=== PATIENT | male | born 1965 | race Caucasian/White ===

== ENCOUNTER → 2016-08-02 | Outpatient (CLI) | payer MEDICAID, OTHER | LOC: YCFC.O 12:33 | PROVIDERS: ATTEND Nurse Practitioner Family | DX: Z00.00 Encounter for general adult medical examination without abnormal findings (principal); R94.5 Abnormal results of liver function studies; I10 Essential (primary) hypertension; Z68.29 Body mass index [BMI] 29.0-29.9, adult ==

== ENCOUNTER → 2017-01-27 | Outpatient (CLI) | payer OTHER ==
--- NOTE | 2017-01-27 18:09 | RAD ---
EXAM DESCRIPTION: Chest,2 Views CLINICAL HISTORY: 51 years Male Nicotine dependence, unspecified, uncomplicated COMPARISON: 12/26/2010 FINDINGS: The cardiomediastinal silhouette appears unremarkable. No consolidating infiltrates or pleural effusions. No pneumothorax. IMPRESSION: No acute abnormality is identified. Electronically signed by: Devora Castillo 01/27/2017 6:08 PM CDT
== END | disposition home or self-care (01) ==
LOC: YCFC.O 12:01
PROVIDERS: ATTEND Nurse Practitioner Family
DX: R53.81 Other malaise (principal); R05 Cough; E86.0 Dehydration; F17.200 Nicotine dependence, unspecified, uncomplicated

== ENCOUNTER 2017-05-18 08:50 | Emergency (ER) | payer OTHER ==
--- NOTE | 2017-05-18 09:15 | ED.PDOC ---
History of Present Illness - General Chief Complaint: Respiratory Problem Stated Complaint: head and nasal congestion,low grade fever Time Seen by Provider: 05/18/17 08:54 Source: patient, RN notes reviewed Exam Limitations: no limitations - History of Present Illness Comments: Patient reports that he has not been feeling well for the past week. He went to the clinic and was diagnosed with a sinus infection and started on Bactrim. He is not feeling better so came to ER. + sinus pressure, congestion and cough. Feels like he has congestion in his lungs. He reports a subjective fever early on but none now. Timing/Duration: constant, week Cough Quality/Degree: moderate Possible Cause: illness exposure Improving Factors: nothing Worsening Factors: nothing Associated Symptoms: cough, facial pain, fever/chills, nasal congestion Allergies/Adverse Reactions: Allergies NO KNOWN ALLERGY Allergy (Verified 02/15/16 15:43) Home Medications: Ambulatory Orders Cefdinir 300 mg PO BID #20 cap 05/18/17 Review of Systems - Review of Systems Constitutional: States: chills, fever, malaise, weakness EENTM: States: see HPI, nose congestion Respiratory: States: cough. Denies: short of breath Cardiology: States: no symptoms reported Gastrointestinal/Abdominal: States: no symptoms reported Musculoskeletal: States: no symptoms reported Skin: States: no symptoms reported Neurological: States: no symptoms reported All other Systems: No Change from Baseline Past Medical History (General) - Patient Medical History Hx Seizures: No Hx Stroke: No Hx Dementia: No Hx Asthma: No Hx of COPD: No Hx Cardiac Disorders: No Hx Congestive Heart Failure: No Hx Pacemaker: No Hx Hypertension: No Hx Thyroid Disease: No Hx Diabetes: No Hx Gastroesophageal Reflux: No Hx Renal Disease: No Hx Cancer: No Hx of HIV: No Hx Hepatitis C: No Hx MRSA: No - Vaccination History Hx Tetanus, Diphtheria Vaccination: No Hx Influenza Vaccination: No Hx Pneumococcal Vaccination: No - Social History Hx Tobacco Use: Yes Family Medical History - Family History Mother Family History: Unknown Living Status: Unknown Physical Exam - Physical Exam General Appearance: Alert, Comfortable, No apparent distress, Well Developed, Well Groomed, Well Hydrated, Well Nourished Eye Exam: bilateral normal ENT Exam: hearing grossly normal, TMs normal, nasal congestion, pharyngeal erythema, other - No maxillary or sinus tenderness Neck: non-tender, full range of motion, supple, normal inspection Respiratory: no respiratory distress, no accessory muscle use, rhonchi - Throughout L>R Cardiovascular/Chest: regular rate, rhythm, no gallop, no murmur Extremity: normal range of motion, non-tender, normal inspection Neurologic: alert, normal mood/affect, oriented x 3 Skin Exam: normal color, warm/dry Comments: Vital Signs 05/18/17 05/18/17 09:05 09:11 Temperature 98 F Pulse Rate [ 66 Left Brachial] Respiratory 20 20 Rate Blood Pressure 115/76 [Left Arm] O2 Sat by Pulse 99 Oximetry Progress - Progress Progress: 05/18/17 09:38 Will give Solumedrol 125mg IM and change antibiotic to Cefdinir - EKG/XRAY/CT XRAY: chest - No acute process per Radiologist Departure - Departure Clinical Impression: Acute bronchitis Qualifiers: Bronchitis organism: unspecified organism Qualified Code(s): J20.9 - Acute bronchitis, unspecified Sinusitis Qualifiers: Sinusitis location: frontal Chronicity: acute Recurrence: non-recurrent Qualified Code(s): J01.10 - Acute frontal sinusitis, unspecified Time of Disposition: 09:39 Disposition: Discharge to Home or Self Care Condition: Good Departure Forms: ED Discharge - Pt. Copy, Patient Portal Self Enrollment Instructions: DI for Sinusitis, DI for Acute Bronchitis Diet: resume usual diet Activity: increase activity as tolerated Referrals: Dorothy Sanz NP [Primary Care Provider] - 1-2 Weeks Prescriptions: Cefdinir 300 mg PO BID #20 cap Home Medications: Ambulatory Orders Cefdinir 300 mg PO BID #20 cap 05/18/17
--- NOTE | 2017-05-18 09:34 | RAD ---
EXAM DESCRIPTION: Chest,2 Views CLINICAL HISTORY: Rhonchi/cough/fever COMPARISON: January 27, 2017 FINDINGS: Frontal and lateral views of the chest. Cardiac silhouette and pulmonary vascularity are within normal limits. Lungs are clear without focal consolidative infiltrates. No pleural effusion. No pneumothorax. No acute osseous abnormality. IMPRESSION: No radiographic evidence of acute cardiopulmonary disease. Electronically signed by: Huang Almonte MD 05/18/2017 9:33 AM CDT
[2017-05-18] MEDS ORDERED: methylPREDNISolone SODIUM SUC 125 MG/2 ML VIAL IM ONE (09:36)
[2017-05-18 09:49] VITALS: BP 115/76; TEMP 98; O2SAT 99
== END 2017-05-18 09:53 | disposition home or self-care (01) ==
LOC: ER 08:50
DX: J20.9 Acute bronchitis, unspecified (principal); J01.10 Acute frontal sinusitis, unspecified
CPT/HCPCS: 71020; J2930

== ENCOUNTER 2017-05-23 12:31 | Emergency (ER) | payer OTHER ==
--- NOTE | 2017-05-23 12:42 | ED.PDOC ---
History of Present Illness - General Chief Complaint: Respiratory Problem Stated Complaint: PERSISTENT COUGH Time Seen by Provider: 05/23/17 12:36 Source: patient Exam Limitations: no limitations Additional Information: PT HAS HAD PERSISTENT COUGH FOR 11 DAYS. HAS BEEN SEEN ONCE IN PCP'S OFFICE RX SULFA WITH NO RELIEF. SEEN ONCE IN ER WITH STEROID IM AND CEFNIDIR. STATES HE FEELS SOME BETTER BUT STILL HAVING SIGNIFICANT SXS. - History of Present Illness Severity: moderate Improving Factors: nothing Worsening Factors: nothing Associated Symptoms: cough Allergies/Adverse Reactions: Allergies NO KNOWN ALLERGY Allergy (Verified 05/23/17 12:48) Home Medications: Ambulatory Orders Cefdinir 300 mg PO BID #20 cap 05/18/17 Azithromycin [Zithromax Z-Jason] 1 ea PO DAILY #1 pack 05/23/17 Review of Systems - Review of Systems Constitutional: States: other - NO NIGHT SWEATS, SIGNIFICANT GENERALIZED FATIGUE . Denies: chills, fever EENTM: Denies: ear pain, nose congestion, throat pain Respiratory: States: cough, other - PROD OF GREEN SPUTUM. Denies: short of breath, wheezing Cardiology: Denies: chest pain, palpitations, syncope Gastrointestinal/Abdominal: Denies: abdominal pain, nausea, vomiting Genitourinary: States: no symptoms reported Musculoskeletal: States: no symptoms reported Skin: States: no symptoms reported Neurological: States: no symptoms reported Endocrine: States: no symptoms reported Hematologic/Lymphatic: States: no symptoms reported Past Medical History (General) - Patient Medical History Hx Seizures: No Hx Stroke: No Hx Dementia: No Hx Asthma: No Hx of COPD: No Hx Cardiac Disorders: No Hx Congestive Heart Failure: No Hx Pacemaker: No Hx Hypertension: No Hx Thyroid Disease: No Hx Diabetes: No Hx Gastroesophageal Reflux: No Hx Renal Disease: No Hx Cancer: No Hx of HIV: No Hx Hepatitis C: No Hx MRSA: No - Vaccination History Hx Tetanus, Diphtheria Vaccination: No Hx Influenza Vaccination: No Hx Pneumococcal Vaccination: No - Social History Hx Tobacco Use: Yes Family Medical History - Family History Mother Family History: Unknown Living Status: Unknown Physical Exam - Physical Exam General Appearance: Alert, No apparent distress Eye Exam: bilateral normal Ears, Nose, Throat: hearing grossly normal, normal ENT inspection, normal pharynx, other - NO SINUS TTP. TM'S NL Neck: non-tender, full range of motion, supple, normal inspection Respiratory: lungs clear, normal breath sounds, no respiratory distress Cardiovascular/Chest: regular rate, rhythm, no murmur Gastrointestinal/Abdominal: normal bowel sounds, non tender, soft, no organomegaly, other - UMBILICAL HERNIA. NOT REDUCABLE, NON STRANGULATED. Back Exam: normal inspection, no CVA tenderness, no vertebral tenderness Extremity: normal range of motion, normal inspection, no pedal edema Neurologic: alert, normal mood/affect Skin Exam: normal color, warm/dry Lymphatic: no adenopathy Progress - EKG/XRAY/CT XRAY: chest - KATHRYN Departure - Departure Clinical Impression: Bronchitis Time of Disposition: 13:55 Disposition: Discharge to Home or Self Care Condition: Good Departure Forms: ED Discharge - Pt. Copy, Patient Portal Self Enrollment Instructions: Acute Bronchitis Referrals: Dorothy Sanz NP [Primary Care Provider] - 1-2 Weeks Prescriptions: Azithromycin [Zithromax Z-Jason] 1 ea PO DAILY #1 pack Home Medications: Ambulatory Orders Cefdinir 300 mg PO BID #20 cap 05/18/17 Azithromycin [Zithromax Z-Jason] 1 ea PO DAILY #1 pack 05/23/17
[2017-05-23] MEDS ORDERED: SODIUM CHLORIDE 0.9% 1000ML 1,000 ML IVS ONE (12:46)
[2017-05-23 12:48] VITALS: BP 134/86
--- NOTE | 2017-05-23 13:10 | RAD ---
EXAM DESCRIPTION: Chest,2 Views CLINICAL HISTORY: PERSISTENT COUGH COMPARISON: May 18, 2017 FINDINGS: Two-view chest x-ray shows cardiomediastinal silhouette and pulmonary vasculature to be within normal limits. The lungs are normally aerated and clear. Costophrenic angles are sharp. Mild disc degenerative changes of the spine are seen. IMPRESSION: No radiographic evidence of acute cardiopulmonary disease. Electronically signed by: Ha Coyne MD 05/23/2017 1:08 PM CDT
[2017-05-23] MEDS ORDERED: methylPREDNISolone SODIUM SUC 125 MG/2 ML VIAL IV ONE (13:59)
[2017-05-23 14:53] VITALS: TEMP 98.2; O2SAT 97
== END 2017-05-23 14:40 | disposition home or self-care (01) ==
LOC: ER 12:31
DX: J40 Bronchitis, not specified as acute or chronic (principal); Z87.891 Personal history of nicotine dependence
CPT/HCPCS: 71020; 80053; 85025; J2930; J7030

== ENCOUNTER 2017-05-30 08:39 | Emergency (ER) | payer OTHER ==
--- NOTE | 2017-05-30 08:47 | ED.PDOC ---
History of Present Illness - General Chief Complaint: ENT Problem Stated Complaint: nasal congestion Time Seen by Provider: 05/30/17 08:45 Source: patient Exam Limitations: no limitations - History of Present Illness Initial Comments: Re Neal 52 y/o male stated that he had nasal congestion for the last 11/2 weeks no fever ,no chills,no ill contact.Taken z- jason and prednisone in the past. also with non productive cough Timing/Duration: other - see hpi EENT Location: nose Prearrival Treatment: no prearrival treatment Presenting Symptoms: congestion/cough Worsening Factors: nothing Associated Symptoms: nasal congestion/drainage Allergies/Adverse Reactions: Allergies NO KNOWN ALLERGY Allergy (Verified 05/23/17 12:48) Home Medications: Ambulatory Orders Azithromycin [Zithromax Z-Jason] 1 ea PO DAILY #1 pack 05/30/17 Benzonatate Perles [Tessalon Perles] 200 mg PO BID PRN #30 cap 05/30/17 predniSONE 20 mg PO ONCE #7 tab 05/30/17 Review of Systems - Review of Systems Constitutional: States: no symptoms reported EENTM: States: see HPI Respiratory: States: see HPI Cardiology: States: no symptoms reported Gastrointestinal/Abdominal: States: no symptoms reported Genitourinary: States: no symptoms reported Past Medical History (General) - Patient Medical History Hx Seizures: No Hx Stroke: No Hx Dementia: No Hx Asthma: No Hx of COPD: No Hx Cardiac Disorders: No Hx Congestive Heart Failure: No Hx Pacemaker: No Hx Hypertension: No Hx Thyroid Disease: No Hx Diabetes: No Hx Gastroesophageal Reflux: No Hx Renal Disease: No Hx Cancer: No Hx of HIV: No Hx Hepatitis C: No Hx MRSA: No Surgical History: other - hernia repair in childhood - Vaccination History Hx Tetanus, Diphtheria Vaccination: No Hx Influenza Vaccination: No Hx Pneumococcal Vaccination: No - Social History Hx Tobacco Use: Yes Family Medical History - Family History Mother Family History: Unknown Living Status: Unknown Physical Exam - Physical Exam General Appearance: Alert, Comfortable, No apparent distress Eye Exam: bilateral normal Ear Exam: bilateral ear: auricle normal, canal normal, TM normal Nasal Exam: normal inspection, other - nasal congestion bilaterally Throat Exam: normal mouth inspection, pharynx normal Neck: non-tender, supple Cardiovascular/Respiratory: normal peripheral pulses, normal breath sounds, no respiratory distress Abdominal Exam: non-tender, no organomegaly Neurologic: alert, oriented x 3 Skin Exam: normal color, warm/dry Departure - Departure Clinical Impression: Upper respiratory infection Qualifiers: URI type: unspecified URI Qualified Code(s): J06.9 - Acute upper respiratory infection, unspecified Time of Disposition: 08:59 Disposition: Discharge to Home or Self Care Condition: Good Departure Forms: ED Discharge - Pt. Copy, Patient Portal Self Enrollment Instructions: Smoking and Smoking Cessation in Relation to Mortality in Women, All Forms of Smoking Are Bad for You, Reasons to Quit Smoking, How to Quit Smoking Referrals: Dorothy Sanz NP [Primary Care Provider] - 1-2 Weeks Prescriptions: Azithromycin [Zithromax Z-Jason] 1 ea PO DAILY #1 pack Benzonatate Perles [Tessalon Perles] 200 mg PO BID PRN #30 cap PRN Reason: Cough predniSONE 20 mg PO ONCE #7 tab Home Medications: Ambulatory Orders Azithromycin [Zithromax Z-Jason] 1 ea PO DAILY #1 pack 05/30/17 Benzonatate Perles [Tessalon Perles] 200 mg PO BID PRN #30 cap 05/30/17 predniSONE 20 mg PO ONCE #7 tab 05/30/17 Additional Instructions: May use Afrin Nose Webb (OTC) 2 sprays each nose am /pm 3days on 3 days off as needed for nasal congestion follow up with primary md 06/01/2017 for ENT consult.
[2017-05-30 08:56] VITALS: TEMP 98.5
[2017-05-30 09:15] VITALS: BP 120/88; O2SAT 97
== END 2017-05-30 09:14 | disposition home or self-care (01) ==
LOC: ER 08:39
DX: J06.9 Acute upper respiratory infection, unspecified (principal)

== ENCOUNTER 2017-06-07 09:12 | Emergency (ER) | payer OTHER ==
[2017-06-07 09:35] VITALS: TEMP 98.7
--- NOTE | 2017-06-07 10:01 | ED.PDOC ---
History of Present Illness - General Chief Complaint: General Stated Complaint: malaise Time Seen by Provider: 06/07/17 09:50 Source: patient Exam Limitations: no limitations - History of Present Illness Initial Comments: PT REPORTS 1 MONTH HISTORY OF PERSISTENT URI SYMPTOMS TO INCLUDE NON PRODUCTIVE COUGH, HEADACHES, FACIAL PAIN, CONGESTION, INTERMITTENT SORE THROAT, DECREASED APPETITE AND GENERALIZED MALAISE. PT HAS BEEN ON 4 ROUNDS OF ABX AND STATES THAT SYMPTOMS USUALLY IMPROVE BUT RETURN AFTER ANTIBIOTICS ARE COMPLETED. PT DENIES FEVER, CHILLS, NIGHT SWEATS OR WEIGHT LOSS. Severity: moderate Improving Factors: nothing Worsening Factors: nothing Associated Symptoms: cough, loss of appetite, malaise, weakness Allergies/Adverse Reactions: Allergies NO KNOWN ALLERGY Allergy (Verified 05/23/17 12:48) Home Medications: Ambulatory Orders Azithromycin [Zithromax Z-Jason] 1 ea PO DAILY #1 pack 05/30/17 Benzonatate Perles [Tessalon Perles] 200 mg PO BID PRN #30 cap 05/30/17 predniSONE 20 mg PO ONCE #7 tab 05/30/17 levoFLOXacin [Levaquin] 500 mg PO DAILY 10 Days #10 tab 06/07/17 Review of Systems - Review of Systems Constitutional: States: malaise, weakness. Denies: chills, fever EENTM: States: nose congestion, throat pain Respiratory: States: cough. Denies: short of breath, wheezing Cardiology: Denies: chest pain, edema, palpitations, syncope Gastrointestinal/Abdominal: Denies: abdominal pain, nausea, vomiting Genitourinary: States: frequency. Denies: dysuria, hematuria Musculoskeletal: Denies: joint pain, muscle pain Skin: Denies: lumps Neurological: States: headache. Denies: weakness Endocrine: States: increased urine. Denies: excessive sweating, intolerance to cold, increased hunger, unexplained weight loss Hematologic/Lymphatic: States: swollen glands. Denies: anemia, easy bleeding, easy bruising Past Medical History (General) - Patient Medical History Hx Seizures: No Hx Stroke: No Hx Dementia: No Hx Asthma: No Hx of COPD: No Hx Cardiac Disorders: No Hx Congestive Heart Failure: No Hx Pacemaker: No Hx Hypertension: No Hx Thyroid Disease: No Hx Diabetes: No Hx Gastroesophageal Reflux: No Hx Renal Disease: No Hx Cancer: No Hx of HIV: No Hx Hepatitis C: No Hx MRSA: No Surgical History: other - Vaccination History Hx Tetanus, Diphtheria Vaccination: No Hx Influenza Vaccination: No Hx Pneumococcal Vaccination: No - Social History Hx Tobacco Use: Yes Family Medical History - Family History Mother Family History: Unknown Living Status: Unknown Physical Exam - Physical Exam General Appearance: Alert, Comfortable, No apparent distress, Well Developed, Well Groomed, Well Hydrated Eye Exam: bilateral normal Ears, Nose, Throat: hearing grossly normal, nasal congestion, pharyngeal erythema Neck: non-tender, full range of motion, supple, normal inspection, lymphadenopathy (R), lymphadenopathy (L) Respiratory: chest non-tender, lungs clear, normal breath sounds, no respiratory distress, no accessory muscle use Cardiovascular/Chest: normal peripheral pulses, regular rate, rhythm, no edema Gastrointestinal/Abdominal: normal bowel sounds, non tender, soft, no organomegaly Back Exam: normal inspection, no CVA tenderness Extremity: normal range of motion, non-tender, normal inspection Neurologic: alert, normal mood/affect, oriented x 3 Skin Exam: normal color, warm/dry Progress - Progress Progress: 06/07/17 11:58 PT RESTING COMFORTABLY, LABS AND CT FINDINGS DISCUSSED. STRONGLY RECOMMENDED TO PATIENT TO FOLLOW UP WITH PCP REGARDING FURTHER WORKUP OF SYMPTOMS. - Results/Orders Results/Orders: Laboratory Tests 06/07/17 06/07/17 06/07/17 10:15 10:15 10:15 WBC 8.9 RBC 4.95 Hgb 15.1 Hct 43.9 MCV 88.6 MCH 30.5 MCHC 34.5 RDW 13.5 Plt Count 127 L MPV 7.0 L Absolute Neuts (auto) 6.60 Absolute Lymphs (auto) 1.40 Absolute Monos (auto) 0.60 Absolute Eos (auto) 0.30 Absolute Basos (auto) 0.10 Neutrophils % 73.7 Lymphocytes % 15.8 L Monocytes % 6.5 Eosinophils % 3.4 Basophils % 0.6 D-Dimer, Quantitative < 200 Sodium 138 Potassium 4.0 Chloride 107 Carbon Dioxide 28 Anion Gap 7.0 L BUN 15 Creatinine 1.04 BUN/Creatinine Ratio 14.4 Random Glucose 95 Serum Osmolality 276.3 Calcium 8.8 Total Bilirubin 0.7 AST 19 ALT 26 Alkaline Phosphatase 59 Troponin I B-Natriuretic Peptide 13.8 Serum Total Protein 6.4 Albumin 3.7 Globulin 2.7 Albumin/Globulin Ratio 1.4 Urine Color Urine Appearance Urine pH Ur Specific [place] Urine Protein Urine Glucose (UA) Urine Ketones Urine Blood Urine Nitrite Urine Bilirubin Urine Urobilinogen Ur Leukocyte Esterase Urine RBC Urine WBC Ur Epithelial Cells Amorphous Sediment Urine Bacteria Monoscreen 06/07/17 06/07/17 06/07/17 10:15 10:15 10:24 WBC RBC Hgb Hct MCV MCH MCHC RDW Plt Count MPV Absolute Neuts (auto) Absolute Lymphs (auto) Absolute Monos (auto) Absolute Eos (auto) Absolute Basos (auto) Neutrophils % Lymphocytes % Monocytes % Eosinophils % Basophils % D-Dimer, Quantitative Sodium Potassium Chloride Carbon Dioxide Anion Gap BUN Creatinine BUN/Creatinine Ratio Random Glucose Serum Osmolality Calcium Total Bilirubin AST ALT Alkaline Phosphatase Troponin I < 0.02 B-Natriuretic Peptide Serum Total Protein Albumin Globulin Albumin/Globulin Ratio Urine Color Yellow Urine Appearance Sl cloudy Urine pH 7.0 Ur Specific [place] 1.020 Urine Protein Negative Urine Glucose (UA) Negative Urine Ketones Negative Urine Blood Negative Urine Nitrite Negative Urine Bilirubin Negative Urine Urobilinogen 0.2 Ur Leukocyte Esterase Negative Urine RBC 0 Urine WBC 0 Ur Epithelial Cells 0 Amorphous Sediment 1+ Urine Bacteria 0 Monoscreen Negative - EKG/XRAY/CT EKG: Jacinto - @54BPM, NL INTERVALS, NL AXIS, Sinus, no ST T wave changes - NO OLD EKG FOR COMPARISON XRAY: chest - NO ACUTE DISEASE CT: HEAD/SINUSES: SINUSITIS Departure - Departure Clinical Impression: Sinusitis, Malaise and fatigue, Headache, Acute bronchitis Time of Disposition: 12:00 Disposition: Discharge to Home or Self Care Condition: Fair Departure Forms: ED Discharge - Pt. Copy, Patient Portal Self Enrollment, Work Release Form Instructions: DI for Sinusitis, DI for Acute Bronchitis Referrals: Dorothy Sanz NP [Primary Care Provider] - 1-2 Weeks Prescriptions: levoFLOXacin [Levaquin] 500 mg PO DAILY 10 Days #10 tab Home Medications: Ambulatory Orders Azithromycin [Zithromax Z-Jason] 1 ea PO DAILY #1 pack 05/30/17 Benzonatate Perles [Tessalon Perles] 200 mg PO BID PRN #30 cap 05/30/17 predniSONE 20 mg PO ONCE #7 tab 05/30/17 levoFLOXacin [Levaquin] 500 mg PO DAILY 10 Days #10 tab 06/07/17
--- NOTE | 2017-06-07 10:38 | RAD ---
EXAM DESCRIPTION: Chest,2 Views CLINICAL HISTORY: 52 years Male, persistent cough, malaise COMPARISON: 23 May 2017 TECHNIQUE: PA/lateral FINDINGS: There is no cardiac or pulmonary abnormality. The lungs are clear. There is no effusion. IMPRESSION: 1. Normal two-view chest. Electronically signed by: Huang Daley MD 06/07/2017 10:37 AM [facility]
--- NOTE | 2017-06-07 11:31 | CT ---
Study: CT of the head. CT of the sinuses. Indication: HEADACHE Technique: Axial CT images of the head were acquired without intravenous contrast. This exam was performed according to our departmental dose-optimization program, which includes automated exposure control, adjustment of the mA and/or kV according to patient size and/or use of iterative reconstruction technique. Comparison: None. Findings: No CT evidence of acute ischemia, acute hemorrhage, mass, mass effect, midline shift, or extra-axial fluid collection. Ventricles are normal in configuration without hydrocephalus. Brain parenchyma demonstrates a normal appearance for patient age. Scattered mild circumferential mucosal thickening in the maxillary sinuses, ethmoid air cells, sphenoid sinuses. No air-fluid levels identified. Obstruction of the right ostiomeatal unit posteriorly due to mucosal thickening. Left ostiomeatal unit patent. 3 mm leftward deviation osseous nasal septum. No significant hypertrophy of the turbinates. Tiny bilateral middle turbinate lizabeth bullosa. Mastoid air cells are adequately aerated. Osseous structures and soft tissues are unremarkable. Poor dentition noted with multiple periapical maxillary lucencies. Impression: 1. No CT evidence of acute intracranial abnormality. 2. Mild scattered paranasal sinus mucosal disease as detailed above. 3. Poor dentition. Dental consultation advised. Electronically signed by: Matt Agarwal MD 06/07/2017 11:30 AM [employer] [facility]
[2017-06-07 12:45] VITALS: BP 155/89; O2SAT 99
== END 2017-06-07 12:20 | disposition home or self-care (01) ==
LOC: ER 09:12
DX: J32.9 Chronic sinusitis, unspecified (principal); J20.9 Acute bronchitis, unspecified; R51 Headache; R53.81 Other malaise

== ENCOUNTER 2017-06-14 10:42 | Emergency (ER) | payer OTHER ==
[2017-06-14 11:18] VITALS: TEMP 98
--- NOTE | 2017-06-14 11:50 | ED.PDOC ---
History of Present Illness - General Chief Complaint: ENT Problem Stated Complaint: sinus complaints Time Seen by Provider: 06/14/17 11:36 Source: patient, RN notes reviewed, Vital Signs reviewed, old records Exam Limitations: no limitations - History of Present Illness Initial Comments: Patient returns to ER with sinus complaints. This his 5th visit in less than a month for the same complaints. He has been treated with Bactrim, Omnicef, Zithromax X2 and is currently on Levaquin. He would like another Rx for Zithromax because he feels that is what works best. He has not followed up with his PCP. Timing/Duration: other - >1 month Severity: mild EENT Location: other - sinuses Prearrival Treatment: prescription meds - Levaquin Improving Factors: nothing Worsening Factors: nothing Associated Symptoms: nasal congestion/drainage Allergies/Adverse Reactions: Allergies NO KNOWN ALLERGY Allergy (Verified 06/14/17 11:18) Home Medications: Ambulatory Orders Azithromycin [Zithromax Z-Jason] 1 ea PO DAILY #1 pack 05/30/17 Benzonatate Perles [Tessalon Perles] 200 mg PO BID PRN #30 cap 05/30/17 predniSONE 20 mg PO ONCE #7 tab 05/30/17 levoFLOXacin [Levaquin] 500 mg PO DAILY 10 Days #10 tab 06/07/17 Azithromycin Tab [Zithromax Tab] 250 mg PO DAILY #1 pack 06/14/17 Review of Systems - Review of Systems Constitutional: States: no symptoms reported EENTM: States: see HPI Respiratory: States: no symptoms reported Cardiology: States: no symptoms reported Musculoskeletal: States: no symptoms reported Skin: States: no symptoms reported All other Systems: No Change from Baseline Past Medical History (General) - Patient Medical History Hx Seizures: No Hx Stroke: No Hx Dementia: No Hx Asthma: No Hx of COPD: No Hx Cardiac Disorders: No Hx Congestive Heart Failure: No Hx Pacemaker: No Hx Hypertension: No Hx Thyroid Disease: No Hx Diabetes: No Hx Gastroesophageal Reflux: No Hx Renal Disease: No Hx Cancer: No Hx of HIV: No Hx Hepatitis C: No Hx MRSA: No Surgical History: other - Vaccination History Hx Tetanus, Diphtheria Vaccination: No Hx Influenza Vaccination: No Hx Pneumococcal Vaccination: No - Social History Hx Tobacco Use: Yes Hx Alcohol Use: No Hx Substance Use: No Hx Depression: No Family Medical History - Family History Mother Family History: Unknown Living Status: Unknown Physical Exam - Physical Exam General Appearance: Alert, Comfortable, No apparent distress, Well Developed, Well Groomed, Well Hydrated, Well Nourished Eye Exam: bilateral normal Nasal Exam: normal inspection Throat Exam: normal mouth inspection, pharynx normal Neck: non-tender, full range of motion, supple, normal inspection Cardiovascular/Respiratory: regular rate, rhythm, no M/R/G, normal breath sounds , no respiratory distress Neurologic: alert, normal mood/affect, oriented x 3 Skin Exam: normal color, warm/dry Comments: Vital Signs 06/14/17 11:11 Temperature 98.0 F Pulse Rate [ 74 pulse ox] Respiratory 20 Rate Blood Pressure 115/82 [Left Arm] O2 Sat by Pulse 100 Oximetry Progress - Progress Progress: 06/14/17 11:51 Discussed his symptoms and treatment to date. Explained that obviously Zithromax did not work since he has continued to return to the ER with the same complaints. Advised that he use OTC medications like Mucinex and nasal spray since he has not tried anything. Stressed that he needs to follow up with his PCP and not continue coming to the ER. Departure - Departure Clinical Impression: Sinusitis Qualifiers: Sinusitis location: frontal Chronicity: subacute Qualified Code(s): J01.10 - Acute frontal sinusitis, unspecified Time of Disposition: 11:53 Disposition: Discharge to Home or Self Care Condition: Good Departure Forms: ED Discharge - Pt. Copy, Patient Portal Self Enrollment Instructions: DI for Sinusitis Diet: resume usual diet Activity: increase activity as tolerated Referrals: Dorothy Sanz NP [Primary Care Provider] - 1-2 Weeks Prescriptions: Azithromycin Tab [Zithromax Tab] 250 mg PO DAILY #1 pack Home Medications: Ambulatory Orders Azithromycin [Zithromax Z-Jason] 1 ea PO DAILY #1 pack 05/30/17 Benzonatate Perles [Tessalon Perles] 200 mg PO BID PRN #30 cap 05/30/17 predniSONE 20 mg PO ONCE #7 tab 05/30/17 levoFLOXacin [Levaquin] 500 mg PO DAILY 10 Days #10 tab 06/07/17 Azithromycin Tab [Zithromax Tab] 250 mg PO DAILY #1 pack 06/14/17 Additional Instructions: Use OTC Mucinex and nasal spray
[2017-06-14 12:13] VITALS: BP 128/79; O2SAT 99
== END 2017-06-14 12:01 | disposition home or self-care (01) ==
LOC: ER 10:42
DX: J01.10 Acute frontal sinusitis, unspecified (principal); Z87.891 Personal history of nicotine dependence

== ENCOUNTER 2018-01-17 12:46 | Emergency (ER) | payer OTHER ==
[2018-01-17] MEDS ORDERED: SODIUM CHLORIDE 0.9% 1000ML 1,000 ML IVS ONE (13:10)
--- NOTE | 2018-01-17 13:13 | ED.PDOC ---
History of Present Illness - General Chief Complaint: General Time Seen by Provider: 01/17/18 13:09 Source: patient, RN notes reviewed, Vital Signs reviewed Exam Limitations: no limitations - History of Present Illness Timing/Duration: 24 hours Severity: moderate Improving Factors: rest Worsening Factors: movement Associated Symptoms: cough, malaise, shortness of breath - pt reports malaise and repetitive head exposure recently, woke this morning and had difficulty getting out of bed. states smokes a pack every 3 days and does not take medications for it. Allergies/Adverse Reactions: Allergies NO KNOWN ALLERGY Allergy (Verified 06/14/17 11:18) Home Medications: Ambulatory Orders Azithromycin [Zithromax Z-Jason] 1 ea PO DAILY #1 pack 05/30/17 Benzonatate Perles [Tessalon Perles] 200 mg PO BID PRN #30 cap 05/30/17 predniSONE 20 mg PO ONCE #7 tab 05/30/17 levoFLOXacin [Levaquin] 500 mg PO DAILY 10 Days #10 tab 06/07/17 Azithromycin Tab [Zithromax Tab] 250 mg PO DAILY #1 pack 06/14/17 Albuterol Inhaler [Ventolin Hfa Inhaler] 1 puff INH Q4H PRN #1 inh 01/17/18 Montelukast [Singulair] 10 mg PO DAILY 30 Days #30 tab 01/17/18 Review of Systems - Review of Systems Constitutional: States: weakness - non focal EENTM: Denies: eye pain, blurred vision, tearing, double vision, ear pain, ear discharge, nose pain, nose congestion, throat pain, throat swelling, mouth pain , mouth swelling Respiratory: States: cough, short of breath. Denies: wheezing Cardiology: Denies: chest pain, edema, palpitations Gastrointestinal/Abdominal: States: abdominal pain - bilateral inguinal area. Denies: constipation, diarrhea, nausea Genitourinary: Denies: dysuria Musculoskeletal: States: muscle pain Neurological: States: headache, weakness. Denies: numbness, paresthesia, tingling Endocrine: States: no symptoms reported Hematologic/Lymphatic: States: no symptoms reported Past Medical History (General) - Patient Medical History Hx Seizures: No Hx Stroke: No Hx Dementia: No Hx Asthma: No Hx of COPD: No Hx Cardiac Disorders: No Hx Congestive Heart Failure: No Hx Pacemaker: No Hx Hypertension: No Hx Thyroid Disease: No Hx Diabetes: No Hx Gastroesophageal Reflux: No Hx Renal Disease: No Hx Cancer: No Hx of HIV: No Hx Hepatitis C: No Hx MRSA: No - Vaccination History Hx Tetanus, Diphtheria Vaccination: No Hx Influenza Vaccination: No Hx Pneumococcal Vaccination: No - Social History Hx Tobacco Use: Yes Hx Alcohol Use: No Hx Substance Use: No Hx Depression: No Family Medical History - Family History Mother Family History: Unknown Living Status: Unknown Physical Exam - Physical Exam General Appearance: Alert, Well Developed, Well Groomed, Well Nourished Eye Exam: bilateral normal Ears, Nose, Throat: hearing grossly normal, normal ENT inspection, normal pharynx, other - dry membranes Neck: non-tender, full range of motion, supple, normal inspection Respiratory: chest non-tender, rales, wheezing - left lung base Cardiovascular/Chest: normal peripheral pulses, regular rate, rhythm, no edema, no gallop, no JVD, no murmur Peripheral Pulses: radial,right: 2+, radial,left: 2+ Gastrointestinal/Abdominal: non tender, soft, other - tenderness to inguinal area but no palpable hearning or bowel extrusion to coughing Back Exam: normal inspection, no CVA tenderness, no vertebral tenderness Extremity: normal range of motion, non-tender, normal inspection, no pedal edema , no calf tenderness 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, no motor/sensory deficits, alert, normal mood/affect, oriented x 3 Skin Exam: other - delayed cap refill with poor turgur Lymphatic: no adenopathy Progress - Progress Progress: 01/17/18 15:39 01/17/18 13:30 Albuterol Sulfate Nebs [Proventil Nebs] 2.5 mg NEB CONTINUOUS 01/18/18 09:00 [facility] Daily Laboratory Results WBC 7.7 K/mm3 (4.8-10.8) 01/17/18 13:15 RBC 5.21 M/mm3 (4.70-6.10) 01/17/18 13:15 Hgb 15.9 gm/dL (14.0-18.0) 01/17/18 13:15 Hct 45.9 % (42.0-52.0) 01/17/18 13:15 MCV 88.0 fl (80.0-94.0) 01/17/18 13:15 MCH 30.5 pg (27.0-31.0) 01/17/18 13:15 MCHC 34.6 g/dL (33.0-37.0) 01/17/18 13:15 RDW 13.4 % (11.5-14.5) 01/17/18 13:15 Plt Count 147 K/mm3 (130-400) 01/17/18 13:15 MPV 6.7 fl (7.40-10.4) L 01/17/18 13:15 Absolute Neuts (auto) 5.40 K/uL (1.8-6.8) 01/17/18 13:15 Absolute Lymphs (auto) 1.50 K/uL (1.0-3.4) 01/17/18 13:15 Absolute Monos (auto) 0.40 K/uL (0.2-0.8) 01/17/18 13:15 Absolute Eos (auto) 0.20 K/uL (0.0-0.4) 01/17/18 13:15 Absolute Basos (auto) 0.00 K/uL (0.0-0.1) 01/17/18 13:15 Neutrophils % 70.5 % (42.0-78.0) 01/17/18 13:15 Lymphocytes % 20.1 % (20.0-50.0) 01/17/18 13:15 Monocytes % 5.8 % (2.0-9.0) 01/17/18 13:15 Eosinophils % 3.0 % (1.0-5.0) 01/17/18 13:15 Basophils % 0.6 % (0.0-2.0) 01/17/18 13:15 Differential Comment Cancelled 01/17/18 13:15 RBC Morphology Cancelled 01/17/18 13:15 PT 11.5 SECONDS (9.4-12.5) 01/17/18 13:15 INR 0.990 01/17/18 13:15 PTT (SP) 30.5 SECONDS (25.1-36.5) 01/17/18 13:15 Sodium 140 mmol/L (135-145) 01/17/18 13:15 Potassium 3.9 mmol/L (3.6-5.0) 01/17/18 13:15 Chloride 106 mmol/L (101-111) 01/17/18 13:15 Carbon Dioxide 27 mmol/L (21-31) 01/17/18 13:15 Anion Gap 10.9 (12-18) L 01/17/18 13:15 BUN 16 mg/dL (7-18) 01/17/18 13:15 Creatinine 0.88 mg/dL (0.6-1.3) 01/17/18 13:15 BUN/Creatinine Ratio 18.2 (10-20) 01/17/18 13:15 Random Glucose 95 mg/dL (70-105) 01/17/18 13:15 Serum Osmolality 280.4 mOsm/L (275-295) 01/17/18 13:15 Calcium 9.2 mg/dL (8.4-10.2) 01/17/18 13:15 Magnesium 2.0 mg/dL (1.8-2.5) 01/17/18 13:15 Total Bilirubin 0.8 mg/dL (0.2-1.0) 01/17/18 13:15 AST 23 IU/L (10-42) 01/17/18 13:15 ALT 29 IU/L (10-60) 01/17/18 13:15 Alkaline Phosphatase 69 IU/L (42-121) 01/17/18 13:15 Creatine Kinase 115 IU/L (38-174) 01/17/18 13:15 CK-MB (CK-2) 1.7 ng/mL (0.0-4.4) 01/17/18 13:15 CK-MB (CK-2) % Not Reportable 01/17/18 13:15 Troponin I < 0.02 ng/mL (0.01-0.05) 01/17/18 13:15 Serum Total Protein 6.7 gm/dL (6.4-8.2) 01/17/18 13:15 Albumin 4.0 g/dl (3.2-5.5) 01/17/18 13:15 Globulin 2.7 gm/dL (2.3-3.5) 01/17/18 13:15 Albumin/Globulin Ratio 1.5 (1.1-1.9) 01/17/18 13:15 Urine Color Yellow (Yellow) 01/17/18 15:00 Urine Appearance Clear (Clear) 01/17/18 15:00 Urine pH 6.5 (4.5-7.8) 01/17/18 15:00 Ur Specific [place] 1.025 (1.005-1.030) 01/17/18 15:00 Urine Protein Negative mg/dL 01/17/18 15:00 Urine Glucose (UA) Negative mg/dL (Negative) 01/17/18 15:00 Urine Ketones Negative mg/dL (NEGATIVE) 01/17/18 15:00 Urine Blood Negative (Negative) 01/17/18 15:00 Urine Nitrite Negative 01/17/18 15:00 Urine Bilirubin Negative (NEGATIVE) 01/17/18 15:00 Urine Urobilinogen 0.2 mg/dL (0.2-1.0) 01/17/18 15:00 Ur Leukocyte Esterase Negative (Negative) 01/17/18 15:00 Urine RBC 0 /hpf 01/17/18 15:00 Urine WBC 0 /hpf 01/17/18 15:00 Ur Epithelial Cells 0 /hpf 01/17/18 15:00 Urine Bacteria 0 01/17/18 15:00 Departure - Departure Clinical Impression: Dehydration, Tobacco abuse counseling Heat exhaustion Qualifiers: Encounter type: initial encounter Qualified Code(s): T67.5XXA - Heat exhaustion , unspecified, initial encounter Fatigue Qualifiers: Fatigue type: unspecified Qualified Code(s): R53.83 - Other fatigue Time of Disposition: 15:39 Disposition: Discharge to Home or Self Care Condition: Excellent Departure Forms: ED Discharge - Pt. Copy, Patient Portal Self Enrollment Instructions: Heat Exhaustion and Heat Stroke (DC) Diet: resume usual diet Activity: increase activity as tolerated Referrals: Dorothy Sanz NP [Primary Care Provider] - 1-2 Weeks Prescriptions: Albuterol Inhaler [Ventolin Hfa Inhaler] 1 puff INH Q4H PRN #1 inh PRN Reason: Shortness Of Breath Montelukast [Singulair] 10 mg PO DAILY 30 Days #30 tab Home Medications: Ambulatory Orders Azithromycin [Zithromax Z-Jason] 1 ea PO DAILY #1 pack 05/30/17 Benzonatate Perles [Tessalon Perles] 200 mg PO BID PRN #30 cap 05/30/17 predniSONE 20 mg PO ONCE #7 tab 05/30/17 levoFLOXacin [Levaquin] 500 mg PO DAILY 10 Days #10 tab 06/07/17 Azithromycin Tab [Zithromax Tab] 250 mg PO DAILY #1 pack 06/14/17 Albuterol Inhaler [Ventolin Hfa Inhaler] 1 puff INH Q4H PRN #1 inh 01/17/18 Montelukast [Singulair] 10 mg PO DAILY 30 Days #30 tab 01/17/18
[2018-01-17] MEDS ORDERED: ALBUTEROL SULFATE 2.5 MG/3 ML VIAL NEB SCH (13:30)
--- NOTE | 2018-01-17 13:39 | RAD ---
Study: Frontal and Lateral Views of the Chest. Indication: weakness, sob Comparison: None. Impression: Heart size normal. Several tiny calcified granulomas throughout the lungs otherwise lungs clear. No acute osseous abnormality. Electronically signed by: Matt Agarwal MD 01/17/2018 1:37 PM CDT
[2018-01-17 13:41] VITALS: O2SAT 95
[2018-01-17 13:58] VITALS: TEMP 98.9
[2018-01-17 13:59] VITALS: BP 117/73
== END 2018-01-17 15:49 | disposition home or self-care (01) ==
LOC: ER 12:46
DX: T67.5XXA Heat exhaustion, unspecified, initial encounter (principal); E86.0 Dehydration; R53.83 Other fatigue; F17.210 Nicotine dependence, cigarettes, uncomplicated; X30.XXXA Exposure to excessive natural heat, initial encounter; Y92.9 Unspecified place or not applicable
CPT/HCPCS: 36415; 71046; 80048; 80053; 81001; 82550; 82553; 84484; 85025; 85610; 85730; 94640; J7030; J7611

== ENCOUNTER 2018-10-18 12:48 | Emergency (ER) | payer SELFPAY ==
[2018-10-18 13:18] VITALS: TEMP 98.6
--- NOTE | 2018-10-18 13:23 | ED.PDOC ---
History of Present Illness - General Chief Complaint: General Stated Complaint: Pt complains of blood in stool and dizziness Time Seen by Provider: 10/18/18 13:17 Source: patient Exam Limitations: no limitations - History of Present Illness Initial Comments: patient comes in today for bright red blood per rectum and weakness. Patient states on Monday he just wasn't feeling well and felt very weak. He was able to continue with work however but on Monday he was so weak that he was not able to go to work. On Monday he has started having some lower abdominal discomfort and as he had some dark red blood with bowel movement. Patient stated only happened that time but then this morning when he wiped there was bright red blood as well. Patient states he did have about a half dollar size clot that came out with a larger bowel movement. He's never had this before but has not had his screening colonoscopy yet. He has no past medical history. He does not routinely take aspirin or ibuprofen [id number]. Patient has not been having trouble with his bowel movements although he admits to some constipation last couple of days. Patient has no family history of colon cancer. Patient prior to this was in his usual health. Timing/Duration: 1 week Severity: moderate Improving Factors: nothing Worsening Factors: nothing Associated Symptoms: denies symptoms Allergies/Adverse Reactions: Allergies NO KNOWN ALLERGY Allergy (Verified 10/18/18 13:22) Home Medications: Ambulatory Orders Albuterol Inhaler [Ventolin Hfa Inhaler] 1 puff INH Q4H PRN #1 inh 01/17/18 Caffeine [Vivarin] 200 mg PO DAILY 10/18/18 Diphenhydramine-Acetaminophen [Tylenol Pm Extra Strength 500-25 mg] 500 mg PO DAILY 10/18/18 Review of Systems - Review of Systems Constitutional: States: weakness EENTM: States: no symptoms reported. Denies: blurred vision, double vision Respiratory: States: no symptoms reported. Denies: cough, short of breath Cardiology: States: no symptoms reported. Denies: chest pain, palpitations Gastrointestinal/Abdominal: States: see HPI, abdominal pain Genitourinary: States: no symptoms reported Musculoskeletal: States: no symptoms reported Skin: States: no symptoms reported Neurological: States: no symptoms reported Past Medical History (General) - Patient Medical History Hx Seizures: No Hx Stroke: No Hx Dementia: No Hx Asthma: No Hx of COPD: No Hx Cardiac Disorders: No Hx Congestive Heart Failure: No Hx Pacemaker: No Hx Hypertension: No Hx Thyroid Disease: No Hx Diabetes: No Hx Gastroesophageal Reflux: No Hx Renal Disease: No Hx Cancer: No Hx of HIV: No Hx Hepatitis C: No Hx MRSA: No Surgical History: other - Vaccination History Hx Tetanus, Diphtheria Vaccination: No Hx Influenza Vaccination: No Hx Pneumococcal Vaccination: No Immunizations Up to Date: - Unknown - Social History Hx Tobacco Use: Yes Hx Alcohol Use: No Hx Substance Use: No Hx Substance Use Treatment: No Hx Depression: No - Female History Patient is a Female of Child Bearing Age (10 -59 yrs old): No Patient : No Family Medical History - Family History Mother Family History: Unknown Living Status: Unknown Physical Exam - Physical Exam General Appearance: Alert, Comfortable, No apparent distress Eye Exam: bilateral normal Ears, Nose, Throat: hearing grossly normal, normal ENT inspection, normal pharynx Neck: non-tender, full range of motion, supple Respiratory: chest non-tender, lungs clear, normal breath sounds Cardiovascular/Chest: normal peripheral pulses, regular rate, rhythm, no edema Gastrointestinal/Abdominal: normal bowel sounds, soft, hernia - umbilical hernia, other - mild tenderness to palpation suprapubically Rectal Exam: normal exam, normal rectal tone, heme negative stool Neurologic: alert, oriented x 3 Progress - Progress Progress: 10/18/18 14:37 explained to patient the failure of the sample card for occult blood. He declines further testing/rectal at this time. Discussed no anemia but needs colonoscopy and would have him schedule with GI/PCP as outpatient. He understands that he needs to have further testing. But with no bleeding since arrival and reassuring exam and labs will discharge for outpatient follow up. 10/18/18 14:38 - Results/Orders Results/Orders: 10/18/18 13:26 [facility] OCCULT BLOOD Stat Laboratory Results WBC 8.6 K/mm3 (4.8-10.8) 10/18/18 13:43 RBC 4.77 M/mm3 (4.70-6.10) 10/18/18 13:43 Hgb 14.6 gm/dL (14.0-18.0) 10/18/18 13:43 Hct 42.2 % (42.0-52.0) 10/18/18 13:43 MCV 88.4 fl (80.0-94.0) 10/18/18 13:43 MCH 30.5 pg (27.0-31.0) 10/18/18 13:43 MCHC 34.5 g/dL (33.0-37.0) 10/18/18 13:43 RDW 12.9 % (11.5-14.5) 10/18/18 13:43 Plt Count 147 K/mm3 (130-400) 10/18/18 13:43 MPV 6.5 fl (7.40-10.4) L 10/18/18 13:43 Absolute Neuts (auto) 6.60 K/uL (1.8-6.8) 10/18/18 13:43 Absolute Lymphs (auto) 1.50 K/uL (1.0-3.4) 10/18/18 13:43 Absolute Monos (auto) 0.50 K/uL (0.2-0.8) 10/18/18 13:43 Absolute Eos (auto) 0.10 K/uL (0.0-0.4) 10/18/18 13:43 Absolute Basos (auto) 0.10 K/uL (0.0-0.1) 10/18/18 13:43 Neutrophils % 76.0 % (42.0-78.0) 10/18/18 13:43 Lymphocytes % 17.4 % (20.0-50.0) L 10/18/18 13:43 Monocytes % 5.3 % (2.0-9.0) 10/18/18 13:43 Eosinophils % 0.6 % (1.0-5.0) L 10/18/18 13:43 Basophils % 0.7 % (0.0-2.0) 10/18/18 13:43 PT 10.0 SECONDS (9.0-10.9) 10/18/18 13:43 INR 1.00 (0.9-1.15) 10/18/18 13:43 PTT (SP) 25.2 SECONDS (21.8-31.6) 10/18/18 13:43 Sodium 139 mmol/L (135-145) 10/18/18 13:43 Potassium 3.7 mmol/L (3.6-5.0) 10/18/18 13:43 Chloride 106 mmol/L (101-111) 10/18/18 13:43 Carbon Dioxide 25 mmol/L (21-31) 10/18/18 13:43 Anion Gap 11.7 (12-18) L 10/18/18 13:43 BUN 16 mg/dL (7-18) 10/18/18 13:43 Creatinine 0.86 mg/dL (0.6-1.3) 10/18/18 13:43 BUN/Creatinine Ratio 18.6 (10-20) 10/18/18 13:43 Random Glucose 95 mg/dL (70-105) 10/18/18 13:43 Serum Osmolality 278.5 mOsm/L (275-295) 10/18/18 13:43 Calcium 8.9 mg/dL (8.4-10.2) 10/18/18 13:43 Total Bilirubin 0.7 mg/dL (0.2-1.0) 10/18/18 13:43 AST 23 IU/L (10-42) 10/18/18 13:43 ALT 23 IU/L (10-60) 10/18/18 13:43 Alkaline Phosphatase 63 IU/L (42-121) 10/18/18 13:43 Serum Total Protein 7.0 gm/dL (6.4-8.2) 10/18/18 13:43 Albumin 4.0 g/dl (3.2-5.5) 10/18/18 13:43 Globulin 3.0 gm/dL (2.3-3.5) 10/18/18 13:43 Albumin/Globulin Ratio 1.3 (1.1-1.9) 10/18/18 13:43 Departure - Departure Clinical Impression: Bright red blood per rectum Disposition: Discharge to Home or Self Care Condition: Good Departure Forms: ED Discharge - Pt. Copy, Patient Portal Self Enrollment Referrals: Dorothy Sanz NP [Primary Care Provider] - 1-2 Weeks Home Medications: Ambulatory Orders Albuterol Inhaler [Ventolin Hfa Inhaler] 1 puff INH Q4H PRN #1 inh 01/17/18 Caffeine [Vivarin] 200 mg PO DAILY 10/18/18 Diphenhydramine-Acetaminophen [Tylenol Pm Extra Strength 500-25 mg] 500 mg PO DAILY 10/18/18 Additional Instructions: follow up in 3-4 days with PCP or GI to schedule colonoscopy. Return to ER for increase bleeding, shortness of breath, weakness
[2018-10-18 15:02] VITALS: BP 119/76; O2SAT 98
== END 2018-10-18 15:01 | disposition home or self-care (01) ==
LOC: ER 12:48
DX: K62.5 Hemorrhage of anus and rectum (principal); R53.1 Weakness; R10.30 Lower abdominal pain, unspecified; Z87.891 Personal history of nicotine dependence

== ENCOUNTER 2018-11-29 11:21 | Emergency (ER) | payer BC ==
[2018-11-29] MEDS ORDERED: SODIUM CHLORIDE 0.9% 1000ML 1,000 ML IVS ONE (13:00)
--- NOTE | 2018-11-29 14:14 | CT ---
EXAM DESCRIPTION: CT ABDOMEN AND PELVIS WITH CONTRAST CLINICAL HISTORY: lower abd pain, gi bleed 2 mo ago COMPARISON: None Available. TECHNIQUE: CT of the abdomen and pelvis are performed during IV bolus administration of 100 mL of Isovue 300. Oral contrast media is administered as well. This exam was performed according to our departmental dose-optimization program, which includes automated exposure control, adjustment of the mA and/or kV according to patient size and/or use of iterative reconstruction technique. FINDINGS: The lung bases are clear of infiltrate. The liver is upper limits of normal and demonstrates several tiny 5 mm or less low-density areas most consistent with small hepatic cysts with no suspected solid mass or pattern of metastatic disease. Gallbladder is normally distended without wall thickening or stones or ductal dilation. A small normal pancreas is noted. Small normal adrenal glands are present. Mild aortic calcification without aneurysm or retroperitoneal adenopathy is noted with some small normal vena cava. The kidneys cortically enhance without cyst or mass or obstruction or evidence stones. Small and large bowel caliber is normal. A small normal appendix in the right lower quadrant is present and mild diverticulosis in the left lower quadrant noted. A moderately large fat-containing supraumbilical hernia extends from the anterior abdominal wall to the skin surface with an approximate 2 cm defect in the abdominal wall in the midline just above the umbilicus. An approximate 7 cm mass of peritoneal fat extends through the defect into the subcutaneous tissues. Within the pelvis the bladder is normally distended and the prostate demonstrates moderate calcification but is not severely enlarged. Abdominal or pelvic fluid collection or free air is not apparent. Modest degenerative disc changes at L5-S1 and L4-5 with minimal levoscoliosis of the lower lumbar spine is noted. At least mild posterior spurring into the anterior epidural space is evident. IMPRESSION: 1. Midline supraumbilical ventral hernia with approximate 2 cm fascial defect and 7 cm diameter mass of mesenteric fat extending to the subdermal level just above the umbilicus. 2. Left colonic diverticulosis without acute changes of diverticulitis and normal-appearing appendix right lower pelvis. No obstruction or ileus noted. 3. Lower lumbar degenerative disc disease and minimal levoscoliosis of the lower lumbar spine Electronically signed by: Jamie Smith MD 11/29/2018 2:12 PM CDT
--- NOTE | 2018-11-29 14:39 | ED.PDOC ---
History of Present Illness - General Chief Complaint: Abdominal Pain Stated Complaint: abdominal pain Time Seen by Provider: 11/29/18 12:10 Source: patient Exam Limitations: no limitations - History of Present Illness Initial Comments: the patient is a 53-year-old male presenting to emergency room secondary to lower abdominal pain that has been worsening over the last 2-3 days. He has had intermittent abdominal pain for several months. He had an episode of a GI bleed about 2 months ago. He has set up to have a lower endoscopy with a private sector executive in the coming weeks. No weight loss. No fever. No history of any diverticulitis. No history of any food intolerance. He does have a large umbilical hernia. It does not appear to be painful at all though it is not reducible at this point. He has had a very long time.no nausea vomiting diarrhea or constipation. No obstructive symptoms. Timing/Duration: 24 hours Severity: moderate Improving Factors: nothing Worsening Factors: movement Associated Symptoms: denies symptoms Allergies/Adverse Reactions: Allergies NO KNOWN ALLERGY Allergy (Verified 10/18/18 13:22) Home Medications: Ambulatory Orders Albuterol Inhaler [Ventolin Hfa Inhaler] 1 puff INH Q4H PRN #1 inh 01/17/18 Caffeine [Vivarin] 200 mg PO DAILY 10/18/18 Diphenhydramine-Acetaminophen [Tylenol Pm Extra Strength 500-25 mg] 500 mg PO DAILY 10/18/18 Ciprofloxacin [Cipro] 500 mg PO BID #10 tab 11/29/18 Metronidazole 500 mg PO TID #15 tab 11/29/18 Review of Systems - Review of Systems Constitutional: States: no symptoms reported, see HPI - chronic fatigue EENTM: States: no symptoms reported Respiratory: States: no symptoms reported Cardiology: States: no symptoms reported Gastrointestinal/Abdominal: States: see HPI Genitourinary: States: no symptoms reported Musculoskeletal: States: no symptoms reported Skin: States: no symptoms reported Neurological: States: no symptoms reported Endocrine: States: no symptoms reported All other Systems: No Change from Baseline Past Medical History (General) - Patient Medical History Hx Seizures: No Hx Stroke: No Hx Dementia: No Hx Asthma: No Hx of COPD: No Hx Cardiac Disorders: No Hx Congestive Heart Failure: No Hx Pacemaker: No Hx Hypertension: No Hx Thyroid Disease: No Hx Diabetes: No Hx Gastroesophageal Reflux: No Hx Renal Disease: No Hx Cancer: No Hx of HIV: No Hx Hepatitis C: No Hx MRSA: No - Vaccination History Hx Tetanus, Diphtheria Vaccination: No Hx Influenza Vaccination: No Hx Pneumococcal Vaccination: No - Social History Hx Tobacco Use: Yes Hx Alcohol Use: No Hx Substance Use: No Hx Substance Use Treatment: No Hx Depression: No - Female History Patient : No Family Medical History - Family History Mother Family History: Unknown Living Status: Unknown Physical Exam - Physical Exam General Appearance: Alert, Comfortable, No apparent distress Eye Exam: bilateral normal Ears, Nose, Throat: hearing grossly normal, normal ENT inspection, normal pharynx Neck: full range of motion, supple Respiratory: lungs clear, normal breath sounds, no respiratory distress, no accessory muscle use Cardiovascular/Chest: normal peripheral pulses, regular rate, rhythm, no edema Peripheral Pulses: radial,right: 2+, radial,left: 2+, dorsalis pedis,right: 2+, dorsalis pedis,left: 2+ Gastrointestinal/Abdominal: soft, other - he does have a large nonreducible umbilical hernia. It is not tender to palpation. He does havelower abdominal discomfort palpation but no palpable mass. It is more on the left. Rectal Exam: deferred Back Exam: no CVA tenderness, no vertebral tenderness Extremity: non-tender, normal inspection, no pedal edema, normal capillary refill Neurologic: academic affairs director II-XII nml as tested, alert, normal mood/affect, oriented x 3 Skin Exam: normal color Comments: Vital Signs - 24 hr 11/29/18 11/29/18 12:20 13:00 Temperature 97.8 F Pulse Rate [ 66 63 Right Brachial] Respiratory 20 16 Rate Blood Pressure 113/70 114/72 [Right Arm] O2 Sat by Pulse 99 99 Oximetry Progress - Progress Progress: 11/29/18 14:40 the patient is a 53-year-old male presenting with lower abdominal pain and fatigue along with a GI bleed that occurred 2 months ago. He does need to keep his appointment for his lower endoscopy. Laboratory work and CT scan were reassuring here. It is possible that his pain is coming from his umbilical h ernia. I do recommend that he see a general surgeon for evaluation of this. It is possible he may have a mild colitis giving him this pain. For the possibility of an infectious colitis the patient is going to be placed on ciprofloxacin and Flagyl for 5 days only. After that he can take a probiotic such as VSL 3 or yogurt to reestablish normal gut irineo. It is also possible that he may be having some dietary intestinal intolerances such as gluten sensitivity or lactose intolerance. He can do a trial off of these and see if his symptoms significantly improve. ER warnings were given. Keep well hydrated. - Results/Orders Results/Orders: CT scan of abdomen and pelvis shows no acute pathology. No diverticulitis. He does have a umbilical hernia that does not contain bowel. Laboratory Tests 11/29/18 11/29/18 11/29/18 12:26 12:26 12:26 WBC 7.5 RBC 5.04 Hgb 15.4 Hct 44.8 MCV 89.0 MCH 30.6 MCHC 34.4 RDW 13.1 Plt Count 135 MPV 6.7 L Absolute Neuts (auto) 5.60 Absolute Lymphs (auto) 1.20 Absolute Monos (auto) 0.40 Absolute Eos (auto) 0.10 Absolute Basos (auto) 0.10 Neutrophils % 75.2 Lymphocytes % 16.4 L Monocytes % 5.9 Eosinophils % 1.7 Basophils % 0.8 Sodium 140 Potassium 4.1 Chloride 105 Carbon Dioxide 27 Anion Gap 12.1 BUN 21 H Creatinine 1.05 BUN/Creatinine Ratio 20.0 Random Glucose 93 Serum Osmolality 282.1 Lactic Acid 1.2 Calcium 8.9 Total Bilirubin 0.7 AST 20 ALT 24 Alkaline Phosphatase 73 Serum Total Protein 7.0 Albumin 4.0 Globulin 3.0 Albumin/Globulin Ratio 1.3 Urine Color Urine Appearance Urine pH Ur Specific Bond Urine Protein Urine Glucose (UA) Urine Ketones Urine Blood Urine Nitrite Urine Bilirubin Urine Urobilinogen Ur Leukocyte Esterase Urine RBC Urine WBC Ur Epithelial Cells Amorphous Sediment Urine Bacteria 11/29/18 13:08 WBC RBC Hgb Hct MCV MCH MCHC RDW Plt Count MPV Absolute Neuts (auto) Absolute Lymphs (auto) Absolute Monos (auto) Absolute Eos (auto) Absolute Basos (auto) Neutrophils % Lymphocytes % Monocytes % Eosinophils % Basophils % Sodium Potassium Chloride Carbon Dioxide Anion Gap BUN Creatinine BUN/Creatinine Ratio Random Glucose Serum Osmolality Lactic Acid Calcium Total Bilirubin AST ALT Alkaline Phosphatase Serum Total Protein Albumin Globulin Albumin/Globulin Ratio Urine Color Yellow Urine Appearance Cloudy Urine pH 7.5 Ur Specific Bond 1.020 Urine Protein Negative Urine Glucose (UA) Negative Urine Ketones Negative Urine Blood Negative Urine Nitrite Negative Urine Bilirubin Negative Urine Urobilinogen 0.2 Ur Leukocyte Esterase Negative Urine RBC 0 Urine WBC 0 Ur Epithelial Cells 0 Amorphous Sediment 4+ Urine Bacteria 0 Departure - Departure Clinical Impression: Abdominal pain Qualifiers: Abdominal location: left lower quadrant Qualified Code(s): R10.32 - Left lower quadrant pain Umbilical hernia without mention of obstruction or gangrene Qualifiers: Obstruction and gangrene presence: without obstruction or gangrene Qualified Code(s): K42.9 - Umbilical hernia without obstruction or gangrene Disposition: Discharge to Home or Self Care Condition: Fair Departure Forms: ED Discharge - Pt. Copy, Patient Portal Self Enrollment Diet: regular diet Activity: increase activity as tolerated Referrals: Lee Amador MD [Primary Care Provider] - 1-2 Weeks Prescriptions: Ciprofloxacin [Cipro] 500 mg PO BID #10 tab Metronidazole 500 mg PO TID #15 tab Home Medications: Ambulatory Orders Albuterol Inhaler [Ventolin Hfa Inhaler] 1 puff INH Q4H PRN #1 inh 01/17/18 Caffeine [Vivarin] 200 mg PO DAILY 10/18/18 Diphenhydramine-Acetaminophen [Tylenol Pm Extra Strength 500-25 mg] 500 mg PO DAILY 10/18/18 Ciprofloxacin [Cipro] 500 mg PO BID #10 tab 11/29/18 Metronidazole 500 mg PO TID #15 tab 11/29/18 Additional Instructions: the patient is a 53-year-old male presenting with lower abdominal pain and fatigue along with a GI bleed that occurred 2 months ago. He does need to keep his appointment for his lower endoscopy. Laboratory work and CT scan were reassuring here. It is possible that his pain is coming from his umbilical h ernia. I do recommend that he see a general surgeon for evaluation of this. It is possible he may have a mild colitis giving him this pain. For the possibility of an infectious colitis the patient is going to be placed on ciprofloxacin and Flagyl for 5 days only. After that he can take a probiotic such as VSL 3 or yogurt to reestablish normal gut irineo. It is also possible that he may be having some dietary intestinal intolerances such as gluten sensitivity or lactose intolerance. He can do a trial off of these and see if his symptoms significantly improve. ER warnings were given. Keep well hydrated.
[2018-11-29 15:07] VITALS: BP 119/76; TEMP 97.2; O2SAT 100
== END 2018-11-29 15:05 | disposition home or self-care (01) ==
LOC: ER 11:21
DX: R10.32 Left lower quadrant pain (principal); K42.9 Umbilical hernia without obstruction or gangrene; Z87.891 Personal history of nicotine dependence
CPT/HCPCS: 36415; 74177; 80053; 81001; 83605; 85025; J7030